=== PATIENT | female | born 1985 | race Caucasian/White ===

== ENCOUNTER → 2022-07-09 15:11 | Outpatient (BNVA) | payer SELFPAY | PROVIDERS: Family Provider Family Medicine; PCP Family Medicine; Visit Provider Family Medicine | DX: F51.04 Psychophysiologic insomnia (principal); F41.1 Generalized anxiety disorder; R63.5 Abnormal weight gain; G47.00 Insomnia, unspecified | CPT/HCPCS: 80053; 84443; 85025 ==